=== PATIENT | female | born 1930 | race Caucasian/White ===

== ENCOUNTER 2019-01-25 19:25 | Inpatient (IN) ==
[2019-01-25] MEDS ORDERED: ALBUTEROL/IPRATROPIUM 3 ML NEB RESP TX STA (20:02)
[2019-01-25] MEDS ORDERED: SODIUM CHLORIDE 0.9% 1,000 ML IV STA (20:02)
[2019-01-25] MEDS ORDERED: methylPREDNISolone SOD SUC 125 MG/2 ML VIAL IV STA (20:02)
[2019-01-25 20:12] LABS: Basophils % 0.3 % (0.0-0.8); Hematocrit 39.2 VOL% (35.7-47.0); Hemoglobin 12.5 GM/DL (12.0-16.0); Immature Granulocytes % 0.7 %; Immature Granulocytes Absolute 0.08 #; Lymphocytes % 8.5 % (21.3-54.2); Mean Corpuscular HGB Conc 31.9 GM/DL (32-36); Mean Corpuscular Hemoglobin 33 PG (27-34); Mean Corpuscular Volume 102.6 FL (87-102); Mean Platelet Volume 10.5 FL (9.6-12.0); Monocytes # 0.7 10*3/uL (0.11-0.8); Monocytes % 5.8 % (1.7-12.7); Neutrophils % 84.7 % (38.7-73.9); Platelet Count 252 T/CUMM (130-400); Red Blood Count 3.82 MC/CUMM (3.8-5.5); Red Cell Distribution Width 13.5 % (9.3-17.3); White Blood Count 11.8 T/CUMM (4-12)
[2019-01-25 20:31] LABS: Alanine Aminotransferase 18 U/L (13-56); Albumin 3.6 G/DL (3.4-5.0); Alkaline Phosphatase 115 U/L (45-117); Aspartate Amino Transferase 17 U/L (0-37); Bilirubin,Total < 0.39 MG/DL (0.2-1.0); Blood Urea Nitrogen 36 MG/DL (7-18); Calcium 9.1 MG/DL (8.5-10.1); Glucose 139 MG/DL (74-106); Osmolality,Calculated 284.7 MOS/KG (273-304); Potassium 4.9 MMOL/L (3.5-5.1); Sodium 138 MMOL/L (136-145); Total Protein 6.9 G/DL (6.4-8.3)
[2019-01-25 21:36] LABS: Apearance,Urine CLEAR (Clear); Bilirubin,Urine Negative (Negative); Blood, Urine Negative (Negative); Glucose,Urine (UA) Negative (Negative); Hyaline Casts,Urine 4 /LPF (0-3); Ketones,Urine Negative (Negative); Mucus,Urine Occasional /LPF (Occasional); Nitrite,Urine Negative (Negative); Protein,Urine 30 MG/DL; RBC,Urine 1 /HPF (0-4); Squamous Epithelial Cell,Urine Occasional /HPF (0-10); Urine Color Yellow (Yellow); Urine Specific Gravity 1.021 (1.001-1.035); Urine Urobilinogen < 2.0 EU/DL (0.2-1.0); WBC,Urine 2 /HPF (0-6)
[2019-01-25 21:42] LABS: ABG Base Excess -4.9 MMOL/L (-2.5-2.5); ABG HCO3 20.3 MMOL/L (20-26); ABG Oxygen Saturation 97.2 % (95-100); ABG PH 7.412 (7.35-7.45); ABG PO2 91.9 MM HG (80-95); ABG TCO2 16.3 MMOL/L (23-27); Allen Test Positive
[2019-01-25] MEDS ORDERED: PIPERACILLIN/TAZOBACTAM 3,375 MG in SODIUM CHLORIDE 0.9% 100 ML IV ONE (23:01)
[2019-01-25] MEDS ORDERED: ZALEPLON 5 MG CAPSULE PO PRN (23:18)
[2019-01-25] MEDS ORDERED: ONDANSETRON 4 MG/2 ML VIAL IV PRN (23:18)
[2019-01-25] MEDS ORDERED: NICOTINE 21 MG/24 HR PATCH TRANSDERM PRN (23:18)
[2019-01-25] MEDS ORDERED: diphenhydrAMINE CAP 25 MG CAPSULE PO PRN (23:18)
[2019-01-25] MEDS ORDERED: BISACODYL 5 MG TABLET PO PRN (23:18)
[2019-01-25] MEDS ORDERED: MORPHINE 4 MG/1 ML VIAL IV PRN (23:18)
[2019-01-26] MEDS: ALBUTEROL/IPRATROPIUM 3 ML NEB RESP TX SCH ×4 (00:51→19:06)
[2019-01-26] MEDS: methylPREDNISolone SOD SUC 40 MG/1 ML VIAL IV SCH ×3 (01:17→17:41)
[2019-01-26] MEDS: CLORAZEPATE 3.75 MG TABLET PO SCH ×3 (08:51→20:25)
[2019-01-26] MEDS: guaiFENesin/DM ER 600-30 MG TABLET PO PRN ×2 (08:51→19:35)
[2019-01-26] MEDS: PANTOPRAZOLE 40 MG TABLET PO SCH (08:51)
[2019-01-26] MEDS: AZITHROMYCIN 250 MG TABLET PO SCH (08:51)
[2019-01-26] MEDS: HYDROcodone/CHLORPHENIRAMINE ER 5 ML UDCUP PO PRN (10:30)
[2019-01-26] MEDS ORDERED: FUROSEMIDE 40 MG/4 ML VIAL IV ONE (12:10)
[2019-01-26] MEDS ORDERED: FUROSEMIDE 40 MG/4 ML VIAL ONE (12:12)
[2019-01-26 12:30] LABS: ABG Base Excess -6.8 MMOL/L (-2.5-2.5); ABG HCO3 18.9 MMOL/L (20-26); ABG Oxygen Saturation 95.8 % (95-100); ABG PCO2 26.9 MM HG (35-48); ABG PH 7.397 (7.35-7.45); ABG PO2 81.5 MM HG (80-95); ABG TCO2 14.3 MMOL/L (23-27)
[2019-01-26] MEDS ORDERED: SODIUM BICARB IV SCH (13:45)
[2019-01-26] MEDS ORDERED: SODIUM CHLORIDE 0.9% IV SCH (13:45)
[2019-01-26] MEDS: BENZONATATE 100 MG CAPSULE PO PRN (19:34)
[2019-01-26] MEDS: ACETAMINOPHEN 325 MG TABLET PO PRN (19:34)
[2019-01-26] MEDS: MONTELUKAST 10 MG TABLET PO SCH (20:25)
[2019-01-27] MEDS: methylPREDNISolone SOD SUC 40 MG/1 ML VIAL IV SCH ×3 (00:32→16:49)
[2019-01-27] MEDS: ALBUTEROL/IPRATROPIUM 3 ML NEB RESP TX SCH ×4 (02:17→19:34)
[2019-01-27 04:56] LABS: Basophils % 0.1 % (0.0-0.8); Hematocrit 37.8 VOL% (35.7-47.0); Hemoglobin 12.1 GM/DL (12.0-16.0); Immature Granulocytes Absolute 0.13 #; Lymphocytes # 1.2 10*3/uL (1.4-4.0); Lymphocytes % 8.8 % (21.3-54.2); Mean Corpuscular Hemoglobin 33 PG (27-34); Mean Platelet Volume 10.9 FL (9.6-12.0); Monocytes # 0.7 10*3/uL (0.11-0.8); Monocytes % 4.9 % (1.7-12.7); Neutrophils # 11.6 10*3/uL (1.4-7.4); Neutrophils % 85.2 % (38.7-73.9); Platelet Count 231 T/CUMM (130-400); Red Blood Count 3.67 MC/CUMM (3.8-5.5); Red Cell Distribution Width 13.8 % (9.3-17.3); White Blood Count 13.6 T/CUMM (4-12)
[2019-01-27 05:06] LABS: Calcium 8.7 MG/DL (8.5-10.1); Potassium 4.6 MMOL/L (3.5-5.1)
[2019-01-27] MEDS: MONTELUKAST 10 MG TABLET PO SCH ×2 (08:56→23:00)
[2019-01-27] MEDS: AZITHROMYCIN 250 MG TABLET PO SCH (08:57)
[2019-01-27] MEDS: PANTOPRAZOLE 40 MG TABLET PO SCH (08:57)
[2019-01-27] MEDS: CLORAZEPATE 3.75 MG TABLET PO SCH ×3 (08:57→23:00)
[2019-01-27] MEDS: HYDROcodone/CHLORPHENIRAMINE ER 5 ML UDCUP PO PRN ×2 (08:59→23:41)
[2019-01-27] MEDS: ALBUTEROL 2.5 MG/3 ML NEB RESP TX PRN ×2 (21:20→23:40)
[2019-01-27] MEDS: NYSTATIN POWDER 15 GM BOTTLE TOP SCH (23:00)
[2019-01-27] MEDS: BENZONATATE 100 MG CAPSULE PO PRN (23:00)
[2019-01-27] MEDS: guaiFENesin/DM ER 600-30 MG TABLET PO PRN (23:00)
[2019-01-28] MEDS: ALBUTEROL/IPRATROPIUM 3 ML NEB RESP TX SCH ×4 (02:15→19:33)
[2019-01-28] MEDS: methylPREDNISolone SOD SUC 40 MG/1 ML VIAL IV SCH ×2 (02:33→09:06)
[2019-01-28] MEDS: BENZONATATE 100 MG CAPSULE PO PRN ×2 (09:05→20:30)
[2019-01-28] MEDS: MONTELUKAST 10 MG TABLET PO SCH ×2 (09:05→20:27)
[2019-01-28] MEDS: guaiFENesin/DM ER 600-30 MG TABLET PO PRN ×2 (09:05→20:27)
[2019-01-28] MEDS: CLORAZEPATE 3.75 MG TABLET PO SCH ×3 (09:06→20:27)
[2019-01-28] MEDS: PANTOPRAZOLE 40 MG TABLET PO SCH (09:06)
[2019-01-28] MEDS: NYSTATIN POWDER 15 GM BOTTLE TOP SCH ×2 (09:06→14:05)
[2019-01-28] MEDS: methylPREDNISolone SOD SUC 125 MG/2 ML VIAL IV SCH ×2 (12:34→17:35)
[2019-01-28] MEDS: AZITHROMYCIN INJ 250 MG in SODIUM CHLORIDE 0.9% 250 ML IV SCH (14:05)
[2019-01-28] MEDS: BUDESONIDE 0.5 MG/2 ML NEB RESP TX SCH (19:33)
[2019-01-28] MEDS: ARFORMOTEROL 15 MCG/2 ML NEB RESP TX SCH (19:33)
[2019-01-28] MEDS: guaiFENesin/CODEINE 5 ML LIQUID PO PRN (21:31)
[2019-01-28] MEDS: ALBUTEROL 2.5 MG/3 ML NEB RESP TX PRN (22:59)
[2019-01-29] MEDS: methylPREDNISolone SOD SUC 125 MG/2 ML VIAL IV SCH ×5 (00:56→23:44)
[2019-01-29] MEDS: NYSTATIN POWDER 15 GM BOTTLE TOP SCH ×4 (00:58→20:35)
[2019-01-29] MEDS: ALBUTEROL/IPRATROPIUM 3 ML NEB RESP TX SCH ×5 (01:28→19:00)
[2019-01-29] MEDS: BENZONATATE 100 MG CAPSULE PO PRN ×3 (05:21→20:39)
[2019-01-29 05:42] LABS: Basophils # 0.1 10*3/uL (0.0-0.2); Basophils % 0.4 % (0.0-0.8); Hematocrit 38.1 VOL% (35.7-47.0); Hemoglobin 12.3 GM/DL (12.0-16.0); Immature Granulocytes % 5.3 %; Immature Granulocytes Absolute 0.74 #; Lymphocytes # 1.2 10*3/uL (1.4-4.0); Lymphocytes % 8.2 % (21.3-54.2); Mean Corpuscular HGB Conc 32.3 GM/DL (32-36); Mean Corpuscular Hemoglobin 33 PG (27-34); Mean Corpuscular Volume 102.1 FL (87-102); Monocytes # 0.9 10*3/uL (0.11-0.8); Monocytes % 6.2 % (1.7-12.7); NRBC # 0.02 10*3/uL; Neutrophils # 11.2 10*3/uL (1.4-7.4); Neutrophils % 79.9 % (38.7-73.9); Platelet Count 240 T/CUMM (130-400); Red Blood Count 3.73 MC/CUMM (3.8-5.5); Red Cell Distribution Width 13.9 % (9.3-17.3)
[2019-01-29 06:09] LABS: Albumin 3.3 G/DL (3.4-5.0); Bilirubin,Total 0.8 MG/DL (0.2-1.0); Calcium 8.4 MG/DL (8.5-10.1); Osmolality,Calculated 294.8 MOS/KG (273-304); Potassium 4.2 MMOL/L (3.5-5.1); Total Protein 6.6 G/DL (6.4-8.3)
[2019-01-29 06:34] LABS: Eosinophils 1 % (0-10); Lymphocytes 10 % (20-55); Metamyelocytes 1 %; Platelet Estimate Adequate; Segmented Neutrophils 86 % (50-85); Total Cells Counted 100
[2019-01-29] MEDS: ARFORMOTEROL 15 MCG/2 ML NEB RESP TX SCH ×2 (07:12→19:00)
[2019-01-29] MEDS: BUDESONIDE 0.5 MG/2 ML NEB RESP TX SCH ×2 (07:12→19:00)
[2019-01-29] MEDS: guaiFENesin/CODEINE 5 ML LIQUID PO PRN ×3 (07:20→23:44)
[2019-01-29] MEDS: CLORAZEPATE 3.75 MG TABLET PO SCH ×3 (08:10→20:35)
[2019-01-29] MEDS: PANTOPRAZOLE 40 MG TABLET PO SCH ×2 (08:10→20:35)
[2019-01-29] MEDS: guaiFENesin/DM ER 600-30 MG TABLET PO PRN (08:10)
[2019-01-29] MEDS: MONTELUKAST 10 MG TABLET PO SCH ×2 (08:10→20:35)
[2019-01-29] MEDS: ALBUTEROL 2.5 MG/3 ML NEB RESP TX PRN ×3 (09:08→15:40)
[2019-01-29] MEDS ORDERED: DILTIAZEM 30 MG TABLET PO SCH (10:00)
[2019-01-29] MEDS: DILTIAZEM 30 MG TABLET PO SCH ×2 (14:01→20:35)
[2019-01-29] MEDS: METAXALONE 800 MG TABLET PO SCH ×2 (14:01→20:36)
[2019-01-29] MEDS: AZITHROMYCIN INJ 250 MG in SODIUM CHLORIDE 0.9% 250 ML IV SCH (14:12)
[2019-01-29] MEDS: DORNASE ALFA 2.5 MG/2.5 ML VIAL RESP TX SCH (19:45)
[2019-01-29] MEDS: PRAMIPEXOLE 0.25 MG TABLET PO SCH (20:35)
[2019-01-29] MEDS: DONEPEZIL 10 MG TABLET PO SCH (20:35)
[2019-01-29] MEDS: ASPIRIN EC 81 MG TABLET PO SCH (20:35)
[2019-01-29] MEDS: OMEGA 3 ACID ETHYL ESTERS 1 GM CAPSULE PO SCH (20:35)
[2019-01-29] MEDS: MAGNESIUM CHLORIDE 64 MG TABLET PO SCH (20:36)
[2019-01-29] MEDS: MEMANTINE 10 MG TABLET PO SCH (20:36)
[2019-01-29] MEDS: TEMAZEPAM 15 MG CAPSULE PO SCH (20:36)
[2019-01-29] MEDS: GLUCOSAMINE 500 MG TABLET PO SCH (20:36)
[2019-01-29] MEDS ORDERED: PIRFENIDONE PO SCH (21:00)
[2019-01-29] MEDS: PARoxetine 20 MG TABLET PO SCH (22:08)
[2019-01-30] MEDS: ALBUTEROL/IPRATROPIUM 3 ML NEB RESP TX SCH ×4 (00:27→20:07)
[2019-01-30 04:38] LABS: Basophils # 0.1 10*3/uL (0.0-0.2); Basophils % 0.3 % (0.0-0.8); Hemoglobin 11.5 GM/DL (12.0-16.0); Immature Granulocytes % 5.6 %; Immature Granulocytes Absolute 0.82 #; Lymphocytes # 1.3 10*3/uL (1.4-4.0); Lymphocytes % 8.8 % (21.3-54.2); Mean Corpuscular HGB Conc 31.9 GM/DL (32-36); Mean Corpuscular Hemoglobin 33 PG (27-34); Mean Corpuscular Volume 102.9 FL (87-102); Mean Platelet Volume 10.8 FL (9.6-12.0); Monocytes # 0.9 10*3/uL (0.11-0.8); Monocytes % 6.3 % (1.7-12.7); NRBC # 0.04 10*3/uL; Neutrophils # 11.6 10*3/uL (1.4-7.4); Platelet Count 202 T/CUMM (130-400); Red Cell Distribution Width 13.7 % (9.3-17.3); White Blood Count 14.7 T/CUMM (4-12)
[2019-01-30 05:01] LABS: Calcium 8.1 MG/DL (8.5-10.1); Osmolality,Calculated 293.8 MOS/KG (273-304); Potassium 4.1 MMOL/L (3.5-5.1)
[2019-01-30 05:04] LABS: Hypochromasia 1+; Lymphocytes 10 % (20-55); Platelet Estimate Adequate; Segmented Neutrophils 85 % (50-85); Total Cells Counted 100
[2019-01-30] MEDS: methylPREDNISolone SOD SUC 125 MG/2 ML VIAL IV SCH ×3 (06:12→20:51)
[2019-01-30] MEDS: LEVOTHYROXINE 88 MCG TABLET PO SCH (06:12)
[2019-01-30] MEDS: BENZONATATE 100 MG CAPSULE PO PRN (06:12)
[2019-01-30] MEDS: BUDESONIDE 0.5 MG/2 ML NEB RESP TX SCH ×2 (07:40→20:08)
[2019-01-30] MEDS: ARFORMOTEROL 15 MCG/2 ML NEB RESP TX SCH ×2 (07:40→20:07)
[2019-01-30] MEDS: DORNASE ALFA 2.5 MG/2.5 ML VIAL RESP TX SCH ×2 (07:51→20:31)
[2019-01-30] MEDS: ASCORBIC ACID 500 MG TABLET PO SCH (10:00)
[2019-01-30] MEDS: DILTIAZEM 30 MG TABLET PO SCH ×3 (10:00→20:52)
[2019-01-30] MEDS: amLODIPine 2.5 MG TABLET PO SCH (10:00)
[2019-01-30] MEDS: CLORAZEPATE 3.75 MG TABLET PO SCH ×3 (10:00→20:52)
[2019-01-30] MEDS: PANTOPRAZOLE 40 MG TABLET PO SCH ×2 (10:00→20:52)
[2019-01-30] MEDS: MEMANTINE 10 MG TABLET PO SCH ×2 (10:00→20:51)
[2019-01-30] MEDS: NYSTATIN POWDER 15 GM BOTTLE TOP SCH ×3 (10:05→20:53)
[2019-01-30] MEDS: METAXALONE 800 MG TABLET PO SCH ×2 (10:07→20:52)
[2019-01-30] MEDS: MONTELUKAST 10 MG TABLET PO SCH ×2 (10:08→20:51)
[2019-01-30] MEDS: AZITHROMYCIN INJ 250 MG in SODIUM CHLORIDE 0.9% 250 ML IV SCH (10:08)
[2019-01-30] MEDS: guaiFENesin/CODEINE 5 ML LIQUID PO PRN (10:14)
[2019-01-30] MEDS: ASPIRIN EC 81 MG TABLET PO SCH (20:51)
[2019-01-30] MEDS: OMEGA 3 ACID ETHYL ESTERS 1 GM CAPSULE PO SCH (20:51)
[2019-01-30] MEDS: MAGNESIUM CHLORIDE 64 MG TABLET PO SCH (20:51)
[2019-01-30] MEDS: GLUCOSAMINE 500 MG TABLET PO SCH (20:51)
[2019-01-30] MEDS: PARoxetine 20 MG TABLET PO SCH (20:51)
[2019-01-30] MEDS: PRAMIPEXOLE 0.25 MG TABLET PO SCH (20:51)
[2019-01-30] MEDS: DONEPEZIL 10 MG TABLET PO SCH (20:52)
[2019-01-30] MEDS: TEMAZEPAM 15 MG CAPSULE PO SCH (20:52)
[2019-01-31] MEDS: ALBUTEROL/IPRATROPIUM 3 ML NEB RESP TX SCH ×4 (00:35→19:23)
[2019-01-31] MEDS: methylPREDNISolone SOD SUC 125 MG/2 ML VIAL IV SCH ×4 (03:13→21:27)
[2019-01-31 05:31] LABS: Basophils # 0.1 10*3/uL (0.0-0.2); Basophils % 0.3 % (0.0-0.8); Hematocrit 36.7 VOL% (35.7-47.0); Hemoglobin 11.7 GM/DL (12.0-16.0); Immature Granulocytes % 5.4 %; Lymphocytes # 1.1 10*3/uL (1.4-4.0); Lymphocytes % 7.5 % (21.3-54.2); Mean Corpuscular HGB Conc 31.9 GM/DL (32-36); Mean Corpuscular Hemoglobin 33 PG (27-34); Mean Corpuscular Volume 102.5 FL (87-102); Mean Platelet Volume 10.5 FL (9.6-12.0); Monocytes # 0.8 10*3/uL (0.11-0.8); Monocytes % 5.2 % (1.7-12.7); NRBC # 0.03 10*3/uL; Neutrophils % 81.6 % (38.7-73.9); Platelet Count 217 T/CUMM (130-400); Red Blood Count 3.58 MC/CUMM (3.8-5.5); Red Cell Distribution Width 13.5 % (9.3-17.3); White Blood Count 14.7 T/CUMM (4-12)
[2019-01-31 05:56] LABS: Band Neutrophils 1 % (0-10); Hypochromasia 1+; Lymphocytes 9 % (20-55); Nucleated Red Blood Cells 1 (0-5); Ovalocytes Slight; Platelet Estimate Adequate; Segmented Neutrophils 87 % (50-85); Total Cells Counted 100
[2019-01-31 05:58] LABS: Calcium 7.9 MG/DL (8.5-10.1); Osmolality,Calculated 292.8 MOS/KG (273-304); Potassium 4.1 MMOL/L (3.5-5.1)
[2019-01-31] MEDS ORDERED: PROMETHAZINE 25 MG/1 ML VIAL IM ONE (07:00)
[2019-01-31] MEDS ORDERED: MEPERIDINE 50 MG/1 ML VIAL IM ONE (07:00)
[2019-01-31] MEDS ORDERED: GLYCOPYRROLATE 0.4 MG/2 ML VIAL IM ONE (07:00)
[2019-01-31] MEDS ORDERED: MIDAZOLAM 2 MG/2 ML VIAL ONE (07:01)
[2019-01-31] MEDS: ARFORMOTEROL 15 MCG/2 ML NEB RESP TX SCH ×2 (07:26→19:23)
[2019-01-31] MEDS: BUDESONIDE 0.5 MG/2 ML NEB RESP TX SCH ×2 (07:27→19:23)
[2019-01-31] MEDS: DORNASE ALFA 2.5 MG/2.5 ML VIAL RESP TX SCH ×2 (07:28→19:38)
[2019-01-31] MEDS ORDERED: LIDOCAINE 2% VISCOUS 100 ML BOTTLE SWISH/SPIT ONE (07:30)
[2019-01-31] MEDS ORDERED: LIDOCAINE 1% 20 ML VIAL MISC INJ ONE (07:30)
[2019-01-31] MEDS ORDERED: MIDAZOLAM 2 MG/2 ML VIAL IV ONE (07:30)
[2019-01-31] MEDS ORDERED: LIDOCAINE 2% 20 ML VIAL RESP TX ONE (07:30)
[2019-01-31] MEDS ORDERED: ENOXAPARIN 30 MG/0.3 ML SYRINGE SUBCUT ONE (07:56)
[2019-01-31] MEDS: DILTIAZEM 30 MG TABLET PO SCH ×3 (10:06→21:23)
[2019-01-31] MEDS: MEMANTINE 10 MG TABLET PO SCH ×2 (10:07→21:25)
[2019-01-31] MEDS: PANTOPRAZOLE 40 MG TABLET PO SCH ×3 (10:07→21:22)
[2019-01-31] MEDS: LEVOTHYROXINE 88 MCG TABLET PO SCH (10:07)
[2019-01-31] MEDS: ASCORBIC ACID 500 MG TABLET PO SCH ×2 (10:07→10:23)
[2019-01-31] MEDS: ENOXAPARIN 40 MG/0.4 ML SYRINGE SUBCUT SCH (10:07)
[2019-01-31] MEDS: amLODIPine 2.5 MG TABLET PO SCH (10:07)
[2019-01-31] MEDS: AZITHROMYCIN INJ 250 MG in SODIUM CHLORIDE 0.9% 250 ML IV SCH (10:13)
[2019-01-31] MEDS: NYSTATIN POWDER 15 GM BOTTLE TOP SCH ×3 (10:21→21:25)
[2019-01-31] MEDS: METAXALONE 800 MG TABLET PO SCH ×2 (10:21→21:27)
[2019-01-31] MEDS: MONTELUKAST 10 MG TABLET PO SCH ×2 (10:21→21:23)
[2019-01-31] MEDS: CLORAZEPATE 3.75 MG TABLET PO SCH ×3 (10:21→21:26)
[2019-01-31 17:10] LABS: Free T4 (Free Thyroxine) 0.9 NG/DL (0.76-1.46)
[2019-01-31] MEDS: OMEGA 3 ACID ETHYL ESTERS 1 GM CAPSULE PO SCH (21:22)
[2019-01-31] MEDS: PARoxetine 20 MG TABLET PO SCH (21:22)
[2019-01-31] MEDS: PRAMIPEXOLE 0.25 MG TABLET PO SCH (21:23)
[2019-01-31] MEDS: ASPIRIN EC 81 MG TABLET PO SCH (21:23)
[2019-01-31] MEDS: GLUCOSAMINE 500 MG TABLET PO SCH (21:23)
[2019-01-31] MEDS: TEMAZEPAM 15 MG CAPSULE PO SCH (21:24)
[2019-01-31] MEDS: MAGNESIUM CHLORIDE 64 MG TABLET PO SCH (21:24)
[2019-01-31] MEDS: DONEPEZIL 10 MG TABLET PO SCH (21:24)
[2019-02-01] MEDS: ALBUTEROL/IPRATROPIUM 3 ML NEB RESP TX SCH ×4 (00:09→19:21)
[2019-02-01] MEDS: methylPREDNISolone SOD SUC 125 MG/2 ML VIAL IV SCH ×2 (04:19→09:44)
[2019-02-01] MEDS: BENZONATATE 100 MG CAPSULE PO PRN ×2 (04:19→18:01)
[2019-02-01 05:32] LABS: Basophils # 0.1 10*3/uL (0.0-0.2); Basophils % 0.3 % (0.0-0.8); Eosinophils % 0.1 % (0.00-10.9); Hematocrit 38.2 VOL% (35.7-47.0); Immature Granulocytes % 6.1 %; Immature Granulocytes Absolute 0.96 #; Lymphocytes % 6.1 % (21.3-54.2); Mean Corpuscular HGB Conc 31.4 GM/DL (32-36); Mean Corpuscular Hemoglobin 32 PG (27-34); Mean Corpuscular Volume 103.2 FL (87-102); Mean Platelet Volume 10.5 FL (9.6-12.0); Monocytes # 0.8 10*3/uL (0.11-0.8); Monocytes % 4.9 % (1.7-12.7); NRBC # 0.04 10*3/uL; Neutrophils # 13.1 10*3/uL (1.4-7.4); Neutrophils % 82.5 % (38.7-73.9); Platelet Count 215 T/CUMM (130-400); Red Cell Distribution Width 13.7 % (9.3-17.3); White Blood Count 15.8 T/CUMM (4-12)
[2019-02-01 05:52] LABS: Calcium 8.1 MG/DL (8.5-10.1); Potassium 4.1 MMOL/L (3.5-5.1)
[2019-02-01 06:31] LABS: Hypochromasia 1+; Lymphocytes 13 % (20-55); Platelet Estimate Normal; Segmented Neutrophils 85 % (50-85); Total Cells Counted 100
[2019-02-01 06:32] LABS: Polychromasia Few
[2019-02-01] MEDS: LEVOTHYROXINE 88 MCG TABLET PO SCH (06:37)
[2019-02-01] MEDS: BUDESONIDE 0.5 MG/2 ML NEB RESP TX SCH ×2 (07:08→19:21)
[2019-02-01] MEDS: ARFORMOTEROL 15 MCG/2 ML NEB RESP TX SCH ×2 (07:08→19:21)
[2019-02-01] MEDS: DORNASE ALFA 2.5 MG/2.5 ML VIAL RESP TX SCH ×2 (07:26→19:21)
[2019-02-01] MEDS: guaiFENesin/CODEINE 5 ML LIQUID PO PRN ×2 (07:26→20:45)
[2019-02-01] MEDS: ENOXAPARIN 40 MG/0.4 ML SYRINGE SUBCUT SCH (09:29)
[2019-02-01] MEDS: MEMANTINE 10 MG TABLET PO SCH ×2 (09:30→20:47)
[2019-02-01] MEDS: PANTOPRAZOLE 40 MG TABLET PO SCH ×2 (09:30→20:46)
[2019-02-01] MEDS: amLODIPine 2.5 MG TABLET PO SCH (09:30)
[2019-02-01] MEDS: ASCORBIC ACID 500 MG TABLET PO SCH (09:30)
[2019-02-01] MEDS: MONTELUKAST 10 MG TABLET PO SCH ×2 (09:30→20:46)
[2019-02-01] MEDS: CLORAZEPATE 3.75 MG TABLET PO SCH ×4 (09:30→20:50)
[2019-02-01] MEDS: DILTIAZEM 30 MG TABLET PO SCH ×3 (09:31→20:45)
[2019-02-01] MEDS: NYSTATIN POWDER 15 GM BOTTLE TOP SCH ×3 (09:31→21:44)
[2019-02-01] MEDS: AZITHROMYCIN INJ 250 MG in SODIUM CHLORIDE 0.9% 250 ML IV SCH (09:31)
[2019-02-01] MEDS: METAXALONE 800 MG TABLET PO SCH ×2 (09:35→20:47)
[2019-02-01] MEDS: predniSONE 20 MG TABLET PO SCH (09:36)
[2019-02-01] MEDS: PRAMIPEXOLE 0.25 MG TABLET PO SCH (20:45)
[2019-02-01] MEDS: OMEGA 3 ACID ETHYL ESTERS 1 GM CAPSULE PO SCH (20:45)
[2019-02-01] MEDS: GLUCOSAMINE 500 MG TABLET PO SCH (20:45)
[2019-02-01] MEDS: ASPIRIN EC 81 MG TABLET PO SCH (20:45)
[2019-02-01] MEDS: MAGNESIUM CHLORIDE 64 MG TABLET PO SCH (20:45)
[2019-02-01] MEDS: TEMAZEPAM 15 MG CAPSULE PO SCH (20:46)
[2019-02-01] MEDS: PARoxetine 20 MG TABLET PO SCH (20:46)
[2019-02-01] MEDS: DONEPEZIL 10 MG TABLET PO SCH (20:47)
[2019-02-02] MEDS: ALBUTEROL/IPRATROPIUM 3 ML NEB RESP TX SCH ×3 (00:35→12:08)
[2019-02-02 05:12] LABS: Basophils % 0.2 % (0.0-0.8); Hematocrit 34.5 VOL% (35.7-47.0); Hemoglobin 11.1 GM/DL (12.0-16.0); Immature Granulocytes % 6.2 %; Lymphocytes % 6.3 % (21.3-54.2); Mean Corpuscular HGB Conc 32.2 GM/DL (32-36); Mean Corpuscular Hemoglobin 33 PG (27-34); Mean Platelet Volume 10.5 FL (9.6-12.0); Monocytes # 1.5 10*3/uL (0.11-0.8); Monocytes % 9.3 % (1.7-12.7); NRBC # 0.02 10*3/uL; Neutrophils # 12.6 10*3/uL (1.4-7.4); Platelet Count 182 T/CUMM (130-400); Red Blood Count 3.35 MC/CUMM (3.8-5.5); Red Cell Distribution Width 13.8 % (9.3-17.3); White Blood Count 16.2 T/CUMM (4-12)
[2019-02-02 05:34] LABS: Hypochromasia 1+; Lymphocytes 8 % (20-55); Segmented Neutrophils 87 % (50-85); Total Cells Counted 100
[2019-02-02 05:35] LABS: Macrocytosis Slight
[2019-02-02 05:36] LABS: Calcium 7.8 MG/DL (8.5-10.1); Osmolality,Calculated 292.8 MOS/KG (273-304); Platelet Estimate Adequate; Potassium 3.9 MMOL/L (3.5-5.1)
[2019-02-02] MEDS ORDERED: LEVOTHYROXINE 100 MCG TABLET PO SCH (06:30)
[2019-02-02] MEDS: DORNASE ALFA 2.5 MG/2.5 ML VIAL RESP TX SCH (07:04)
[2019-02-02] MEDS: ARFORMOTEROL 15 MCG/2 ML NEB RESP TX SCH (07:04)
[2019-02-02] MEDS: BUDESONIDE 0.5 MG/2 ML NEB RESP TX SCH (07:04)
[2019-02-02] MEDS: NYSTATIN POWDER 15 GM BOTTLE TOP SCH (08:55)
[2019-02-02] MEDS: DILTIAZEM 30 MG TABLET PO SCH (08:55)
[2019-02-02] MEDS: MEMANTINE 10 MG TABLET PO SCH (08:55)
[2019-02-02] MEDS: predniSONE 20 MG TABLET PO SCH (08:55)
[2019-02-02] MEDS: PANTOPRAZOLE 40 MG TABLET PO SCH (08:55)
[2019-02-02] MEDS: ASCORBIC ACID 500 MG TABLET PO SCH (08:55)
[2019-02-02] MEDS: MONTELUKAST 10 MG TABLET PO SCH (08:55)
[2019-02-02] MEDS: amLODIPine 2.5 MG TABLET PO SCH (08:55)
[2019-02-02] MEDS: METAXALONE 800 MG TABLET PO SCH (08:55)
[2019-02-02] MEDS: CLORAZEPATE 3.75 MG TABLET PO SCH (08:56)
[2019-02-02] MEDS: ENOXAPARIN 40 MG/0.4 ML SYRINGE SUBCUT SCH (08:56)
[2019-02-02] MEDS: AZITHROMYCIN INJ 250 MG in SODIUM CHLORIDE 0.9% 250 ML IV SCH (08:56)
[2019-02-02] MEDS: ACETAMINOPHEN 325 MG TABLET PO PRN (09:44)
[2019-02-02 12:01] VITALS: BP 134/70
== END 2019-02-02 14:20 | disposition home health service (06) | DRG 191 ==
LOC: EDUNIT# → N.ED 19:25 → N.EDINP 23:18 → SUATTDRO 23:18 → N.2E 01-26 00:01
PROVIDERS: ADMIT Internal Medicine; ATTEND Internal Medicine

== ENCOUNTER 2019-03-11 23:37 | Inpatient (IN) ==
[2019-03-12] MEDS ORDERED: FUROSEMIDE 40 MG/4 ML VIAL IV STA (00:25)
[2019-03-12 01:14] LABS: Basophils # 0.1 10*3/uL (0.0-0.2); Basophils % 0.6 % (0.0-0.8); Eosinophils # 0.1 10*3/uL (0.0-0.87); Eosinophils % 0.7 % (0.00-10.9); Hematocrit 42.8 VOL% (35.7-47.0); Hemoglobin 13.8 GM/DL (12.0-16.0); Immature Granulocytes % 0.6 %; Immature Granulocytes Absolute 0.08 #; Lymphocytes # 1.2 10*3/uL (1.4-4.0); Lymphocytes % 9.8 % (21.3-54.2); Mean Corpuscular HGB Conc 32.2 GM/DL (32-36); Mean Corpuscular Volume 102.4 FL (87-102); Mean Platelet Volume 10.5 FL (9.6-12.0); Neutrophils % 77.3 % (38.7-73.9); Platelet Count 156 T/CUMM (130-400); Red Blood Count 4.18 MC/CUMM (3.8-5.5); Red Cell Distribution Width 14.4 % (9.3-17.3); White Blood Count 12.7 T/CUMM (4-12)
[2019-03-12 01:31] LABS: Bilirubin,Total 0.5 MG/DL (0.2-1.0); Calcium 8.5 MG/DL (8.5-10.1); Osmolality,Calculated 290.7 MOS/KG (273-304); Total Protein 6.1 G/DL (6.4-8.3)
[2019-03-12 03:53] LABS: ABG Base Excess 0.7 MMOL/L (-2.5-2.5); ABG PCO2 30.7 MM HG (35-48); ABG PH 7.483 (7.35-7.45); ABG TCO2 19.6 MMOL/L (23-27); Allen Test Positive
[2019-03-12] MEDS ORDERED: diphenhydrAMINE CAP 25 MG CAPSULE PO PRN (04:00)
[2019-03-12] MEDS ORDERED: NICOTINE 21 MG/24 HR PATCH TRANSDERM PRN (04:00)
[2019-03-12] MEDS ORDERED: ONDANSETRON 4 MG/2 ML VIAL IV PRN (04:00)
[2019-03-12] MEDS ORDERED: BISACODYL 5 MG TABLET PO PRN (04:00)
[2019-03-12] MEDS: methylPREDNISolone SOD SUC 40 MG/1 ML VIAL IV SCH ×2 (04:56→17:04)
[2019-03-12] MEDS: cefTRIAXone 1,000 MG in SYRINGE 1 EACH IV SCH (04:57)
[2019-03-12] MEDS: guaiFENesin/DM ER 600-30 MG TABLET PO SCH ×2 (09:05→20:19)
[2019-03-12] MEDS: DOXYCYCLINE HYCLATE 100 MG CAPSULE PO SCH ×2 (09:05→20:19)
[2019-03-12] MEDS: PANTOPRAZOLE 40 MG TABLET PO SCH (09:05)
[2019-03-12] MEDS: CLORAZEPATE 3.75 MG TABLET PO SCH ×2 (11:09→20:19)
[2019-03-12] MEDS: NYSTATIN POWDER 15 GM BOTTLE TOP SCH ×2 (11:17→20:23)
[2019-03-12] MEDS: ALBUTEROL/IPRATROPIUM 3 ML NEB RESP TX SCH ×2 (12:15→19:11)
[2019-03-13] MEDS: ALBUTEROL/IPRATROPIUM 3 ML NEB RESP TX SCH ×5 (00:37→19:07)
[2019-03-13] MEDS: methylPREDNISolone SOD SUC 40 MG/1 ML VIAL IV SCH ×2 (04:03→16:14)
[2019-03-13] MEDS: cefTRIAXone 1,000 MG in SYRINGE 1 EACH IV SCH (04:03)
[2019-03-13] MEDS: CLORAZEPATE 3.75 MG TABLET PO SCH ×2 (08:53→21:09)
[2019-03-13] MEDS: DOXYCYCLINE HYCLATE 100 MG CAPSULE PO SCH ×2 (08:53→21:09)
[2019-03-13] MEDS: PANTOPRAZOLE 40 MG TABLET PO SCH (08:53)
[2019-03-13] MEDS: guaiFENesin/DM ER 600-30 MG TABLET PO SCH ×2 (08:53→21:10)
[2019-03-13] MEDS: NYSTATIN POWDER 15 GM BOTTLE TOP SCH ×2 (08:53→21:11)
[2019-03-13] MEDS: amLODIPine 2.5 MG TABLET PO SCH (12:15)
[2019-03-13] MEDS: MEMANTINE 10 MG TABLET PO SCH (21:10)
[2019-03-13] MEDS: DONEPEZIL 10 MG TABLET PO SCH (21:10)
[2019-03-13] MEDS: PARoxetine 20 MG TABLET PO SCH (21:10)
[2019-03-14] MEDS: ALBUTEROL/IPRATROPIUM 3 ML NEB RESP TX SCH ×5 (01:39→18:51)
[2019-03-14] MEDS: methylPREDNISolone SOD SUC 40 MG/1 ML VIAL IV SCH ×2 (03:53→17:17)
[2019-03-14] MEDS: LEVOTHYROXINE 88 MCG TABLET PO SCH (05:34)
[2019-03-14 08:49] LABS: Basophils % 0.2 % (0.0-0.8); Eosinophils % 0.1 % (0.00-10.9); Hematocrit 39.1 VOL% (35.7-47.0); Hemoglobin 12.2 GM/DL (12.0-16.0); Immature Granulocytes % 1.2 %; Immature Granulocytes Absolute 0.23 #; Lymphocytes # 0.9 10*3/uL (1.4-4.0); Lymphocytes % 4.8 % (21.3-54.2); Mean Corpuscular HGB Conc 31.2 GM/DL (32-36); Mean Corpuscular Volume 105.7 FL (87-102); Mean Platelet Volume 10.5 FL (9.6-12.0); Monocytes % 4.3 % (1.7-12.7); Neutrophils % 89.4 % (38.7-73.9); Platelet Count 305 T/CUMM (130-400); Red Cell Distribution Width 14.4 % (9.3-17.3); White Blood Count 19.5 T/CUMM (4-12)
[2019-03-14] MEDS: MEGESTROL 400 MG/10 ML UDCUP PO SCH (09:07)
[2019-03-14] MEDS: guaiFENesin/DM ER 600-30 MG TABLET PO SCH ×2 (09:08→21:24)
[2019-03-14] MEDS: PANTOPRAZOLE 40 MG TABLET PO SCH (09:08)
[2019-03-14] MEDS: DOXYCYCLINE HYCLATE 100 MG CAPSULE PO SCH ×2 (09:08→21:24)
[2019-03-14] MEDS: NYSTATIN POWDER 15 GM BOTTLE TOP SCH ×2 (09:08→21:24)
[2019-03-14] MEDS: CLORAZEPATE 3.75 MG TABLET PO SCH (09:08)
[2019-03-14] MEDS: MEMANTINE 10 MG TABLET PO SCH ×2 (09:08→21:32)
[2019-03-14] MEDS: amLODIPine 2.5 MG TABLET PO SCH (09:08)
[2019-03-14 09:16] LABS: Anisocytosis Slight; Band Neutrophils 6 % (0-10); Lymphocytes 6 % (20-55); Macrocytosis Slight; Platelet Estimate Normal; Segmented Neutrophils 86 % (50-85); Total Cells Counted 100
[2019-03-14 09:17] LABS: Calcium 8.7 MG/DL (8.5-10.1); Osmolality,Calculated 291.7 MOS/KG (273-304)
[2019-03-14] MEDS ORDERED: CLORAZEPATE 3.75 MG TABLET PO PRN (12:48)
[2019-03-14] MEDS: DONEPEZIL 10 MG TABLET PO SCH (21:24)
[2019-03-14] MEDS: PARoxetine 20 MG TABLET PO SCH (21:25)
[2019-03-15] MEDS: ALBUTEROL/IPRATROPIUM 3 ML NEB RESP TX SCH ×4 (02:18→19:18)
[2019-03-15] MEDS: methylPREDNISolone SOD SUC 40 MG/1 ML VIAL IV SCH ×2 (03:32→15:36)
[2019-03-15 05:52] LABS: Basophils % 0.1 % (0.0-0.8); Eosinophils % 0.1 % (0.00-10.9); Hematocrit 35.7 VOL% (35.7-47.0); Hemoglobin 11.3 GM/DL (12.0-16.0); Immature Granulocytes % 1.4 %; Immature Granulocytes Absolute 0.24 #; Lymphocytes # 0.9 10*3/uL (1.4-4.0); Lymphocytes % 4.9 % (21.3-54.2); Mean Corpuscular HGB Conc 31.7 GM/DL (32-36); Mean Corpuscular Volume 103.5 FL (87-102); Mean Platelet Volume 10.8 FL (9.6-12.0); Monocytes % 7.1 % (1.7-12.7); Neutrophils % 86.4 % (38.7-73.9); Platelet Count 289 T/CUMM (130-400); Red Blood Count 3.45 MC/CUMM (3.8-5.5); Red Cell Distribution Width 14.1 % (9.3-17.3); White Blood Count 17.7 T/CUMM (4-12)
[2019-03-15 05:59] LABS: Calcium 8.5 MG/DL (8.5-10.1); Osmolality,Calculated 294.6 MOS/KG (273-304)
[2019-03-15 06:44] LABS: Anisocytosis 1+; Macrocytosis 1+; Platelet Estimate Normal
[2019-03-15] MEDS ORDERED: MEPERIDINE 50 MG/1 ML VIAL IM ONE (07:00)
[2019-03-15] MEDS ORDERED: PROMETHAZINE 25 MG/1 ML VIAL IM ONE (07:00)
[2019-03-15] MEDS ORDERED: LIDOCAINE 1% 20 ML VIAL MISC INJ ONE (07:30)
[2019-03-15] MEDS ORDERED: LIDOCAINE 2% 20 ML VIAL RESP TX ONE (07:30)
[2019-03-15] MEDS ORDERED: MIDAZOLAM 2 MG/2 ML VIAL IV ONE (07:30)
[2019-03-15] MEDS ORDERED: LIDOCAINE 2% VISCOUS 100 ML BOTTLE SWISH/SPIT ONE (07:30)
[2019-03-15] MEDS ORDERED: MIDAZOLAM 2 MG/2 ML VIAL ONE (07:40)
[2019-03-15] MEDS: PANTOPRAZOLE 40 MG TABLET PO SCH (11:51)
[2019-03-15] MEDS: MEGESTROL 400 MG/10 ML UDCUP PO SCH (11:51)
[2019-03-15] MEDS: DOXYCYCLINE HYCLATE 100 MG CAPSULE PO SCH ×2 (11:51→21:21)
[2019-03-15] MEDS: guaiFENesin/DM ER 600-30 MG TABLET PO SCH ×2 (11:51→21:21)
[2019-03-15] MEDS: LEVOTHYROXINE 88 MCG TABLET PO SCH (11:51)
[2019-03-15] MEDS: amLODIPine 2.5 MG TABLET PO SCH (11:51)
[2019-03-15] MEDS: MEMANTINE 10 MG TABLET PO SCH ×2 (11:51→21:21)
[2019-03-15] MEDS: NYSTATIN POWDER 15 GM BOTTLE TOP SCH (11:52)
[2019-03-15] MEDS: DONEPEZIL 10 MG TABLET PO SCH (21:21)
[2019-03-15] MEDS: PARoxetine 20 MG TABLET PO SCH (21:21)
[2019-03-16] MEDS: ALBUTEROL/IPRATROPIUM 3 ML NEB RESP TX SCH ×4 (00:42→19:07)
[2019-03-16] MEDS: methylPREDNISolone SOD SUC 40 MG/1 ML VIAL IV SCH (04:25)
[2019-03-16 05:16] LABS: Basophils % 0.1 % (0.0-0.8); Hematocrit 34.9 VOL% (35.7-47.0); Hemoglobin 11.1 GM/DL (12.0-16.0); Immature Granulocytes % 1.9 %; Immature Granulocytes Absolute 0.31 #; Lymphocytes # 0.9 10*3/uL (1.4-4.0); Lymphocytes % 5.7 % (21.3-54.2); Mean Corpuscular HGB Conc 31.8 GM/DL (32-36); Mean Corpuscular Volume 102.6 FL (87-102); Mean Platelet Volume 11.3 FL (9.6-12.0); Monocytes % 9.8 % (1.7-12.7); NRBC # 0.02 10*3/uL; Neutrophils % 82.5 % (38.7-73.9); Platelet Count 283 T/CUMM (130-400); Red Cell Distribution Width 14.1 % (9.3-17.3)
[2019-03-16 05:32] LABS: Calcium 8.6 MG/DL (8.5-10.1); Osmolality,Calculated 294.6 MOS/KG (273-304)
[2019-03-16] MEDS: LEVOTHYROXINE 88 MCG TABLET PO SCH (06:30)
[2019-03-16] MEDS: NYSTATIN POWDER 15 GM BOTTLE TOP SCH ×3 (06:30→20:01)
[2019-03-16] MEDS: amLODIPine 2.5 MG TABLET PO SCH (08:26)
[2019-03-16] MEDS: DOXYCYCLINE HYCLATE 100 MG CAPSULE PO SCH ×2 (08:26→20:01)
[2019-03-16] MEDS: guaiFENesin/DM ER 600-30 MG TABLET PO SCH ×2 (08:26→20:01)
[2019-03-16] MEDS: MEMANTINE 10 MG TABLET PO SCH ×2 (08:27→20:01)
[2019-03-16] MEDS: PANTOPRAZOLE 40 MG TABLET PO SCH (08:27)
[2019-03-16] MEDS: MEGESTROL 400 MG/10 ML UDCUP PO SCH (08:27)
[2019-03-16] MEDS ORDERED: predniSONE 20 MG TABLET PO SCH (09:30)
[2019-03-16] MEDS: predniSONE 10 MG TABLET PO SCH (10:13)
[2019-03-16] MEDS: DONEPEZIL 10 MG TABLET PO SCH (20:01)
[2019-03-16] MEDS: PARoxetine 20 MG TABLET PO SCH (20:01)
[2019-03-17] MEDS: ALBUTEROL/IPRATROPIUM 3 ML NEB RESP TX SCH ×3 (01:26→13:15)
[2019-03-17] MEDS: BENZONATATE 100 MG CAPSULE PO PRN ×2 (02:00→09:27)
[2019-03-17 04:28] LABS: Basophils # 0.1 10*3/uL (0.0-0.2); Basophils % 0.3 % (0.0-0.8); Hematocrit 35.6 VOL% (35.7-47.0); Hemoglobin 11.4 GM/DL (12.0-16.0); Immature Granulocytes % 3.4 %; Lymphocytes # 1.6 10*3/uL (1.4-4.0); Lymphocytes % 7.7 % (21.3-54.2); Mean Corpuscular Volume 103.5 FL (87-102); Mean Platelet Volume 10.6 FL (9.6-12.0); Monocytes % 10.5 % (1.7-12.7); NRBC # 0.04 10*3/uL; Neutrophils % 78.1 % (38.7-73.9); Platelet Count 284 T/CUMM (130-400); Red Blood Count 3.44 MC/CUMM (3.8-5.5); Red Cell Distribution Width 14.2 % (9.3-17.3); White Blood Count 20.7 T/CUMM (4-12)
[2019-03-17 04:57] LABS: Calcium 8.1 MG/DL (8.5-10.1); Osmolality,Calculated 295.4 MOS/KG (273-304)
[2019-03-17 05:12] LABS: Band Neutrophils 1 % (0-10); Lymphocytes 8 % (20-55); Metamyelocytes 1 %; Nucleated Red Blood Cells 1 (0-5); Segmented Neutrophils 82 % (50-85); Total Cells Counted 100
[2019-03-17 05:13] LABS: Anisocytosis Slight
[2019-03-17 05:14] LABS: Microcytosis Slight; Polychromasia Slight
[2019-03-17 05:15] LABS: Spherocytes Slight
[2019-03-17 05:16] LABS: Ovalocytes Slight; Platelet Estimate Normal
[2019-03-17] MEDS: LEVOTHYROXINE 88 MCG TABLET PO SCH (06:40)
[2019-03-17] MEDS: PANTOPRAZOLE 40 MG TABLET PO SCH (09:27)
[2019-03-17] MEDS: MEMANTINE 10 MG TABLET PO SCH (09:27)
[2019-03-17] MEDS: POTASSIUM CHLORIDE 20 MEQ TABLET PO PRN ×2 (09:27→12:28)
[2019-03-17] MEDS: predniSONE 10 MG TABLET PO SCH (09:27)
[2019-03-17] MEDS: amLODIPine 2.5 MG TABLET PO SCH (09:28)
[2019-03-17] MEDS: guaiFENesin/DM ER 600-30 MG TABLET PO SCH (09:28)
[2019-03-17] MEDS: MEGESTROL 400 MG/10 ML UDCUP PO SCH (09:28)
[2019-03-17] MEDS: NYSTATIN POWDER 15 GM BOTTLE TOP SCH (09:28)
[2019-03-17] MEDS: DOXYCYCLINE HYCLATE 100 MG CAPSULE PO SCH (09:28)
[2019-03-17 12:10] VITALS: BP 151/75
== END 2019-03-17 13:55 | DRG 166 ==
LOC: N.ED 23:37 → N.EDINP 03-12 04:00 → N.TELES 03-12 04:31
PROVIDERS: ADMIT Internal Medicine; ATTEND Internal Medicine

== ENCOUNTER 2019-04-27 10:17 | Inpatient (IN) ==
[2019-04-27] MEDS ORDERED: SODIUM CHLORIDE 0.9% 500 ML IV STA (11:22)
[2019-04-27 12:10] LABS: Basophils # 0.1 10*3/uL (0.0-0.2); Basophils % 0.5 % (0.0-0.8); Eosinophils # 0.1 10*3/uL (0.0-0.87); Eosinophils % 0.2 % (0.00-10.9); Hemoglobin 14.8 GM/DL (12.0-16.0); Immature Granulocytes % 4.1 %; Immature Granulocytes Absolute 0.87 #; Lymphocytes # 1.1 10*3/uL (1.4-4.0); Lymphocytes % 5.2 % (21.3-54.2); Mean Corpuscular HGB Conc 32.2 GM/DL (32-36); Mean Corpuscular Volume 103.6 FL (87-102); Monocytes % 6.4 % (1.7-12.7); NRBC # 0.04 10*3/uL; Neutrophils % 83.6 % (38.7-73.9); Platelet Count 282 T/CUMM (130-400); Red Blood Count 4.44 MC/CUMM (3.8-5.5); Red Cell Distribution Width 16.7 % (9.3-17.3); White Blood Count 21.2 T/CUMM (4-12)
[2019-04-27 12:31] LABS: Hypochromasia 1+; Lymphocytes 6 % (20-55); Nucleated Red Blood Cells 1 (0-5); Segmented Neutrophils 91 % (50-85); Total Cells Counted 100
[2019-04-27 12:32] LABS: Macrocytosis 1+; Platelet Estimate Normal
[2019-04-27 12:41] LABS: Albumin 3.7 G/DL (3.4-5.0); Bilirubin,Total 0.5 MG/DL (0.2-1.0); Calcium 9.3 MG/DL (8.5-10.1); Osmolality,Calculated 287.3 MOS/KG (273-304)
[2019-04-27 13:40] LABS: Apearance,Urine CLEAR (Clear); Bacteria,Urine Occasional /HPF (Few); Bilirubin,Urine Negative (Negative); Blood, Urine Small mg/dL (Negative); Glucose,Urine (UA) Negative (Negative); Hyaline Casts,Urine 12 /LPF (0-3); Ketones,Urine Negative (Negative); Mucus,Urine Occasional /LPF (Occasional); Nitrite,Urine Negative (Negative); Protein,Urine 100 MG/DL; RBC,Urine 3 /HPF (0-4); Squamous Epithelial Cell,Urine Occasional /HPF (0-10); Urine Color Yellow (Yellow); Urine Specific Gravity 1.019 (1.001-1.035); Urine Urobilinogen < 2.0 EU/DL (0.2-1.0); WBC,Urine 1 /HPF (0-6)
[2019-04-27] MEDS ORDERED: ACETAMINOPHEN 325 MG TABLET PO PRN (14:44)
[2019-04-27] MEDS ORDERED: ONDANSETRON 4 MG/2 ML VIAL IV PRN (14:44)
[2019-04-27] MEDS ORDERED: CLORAZEPATE 3.75 MG TABLET PO PRN (14:47)
[2019-04-27] MEDS ORDERED: BENZONATATE 100 MG CAPSULE PO PRN (14:47)
[2019-04-27] MEDS ORDERED: PIRFENIDONE PO SCH (15:00)
[2019-04-27] MEDS: SODIUM CHLORIDE 0.9% 1,000 ML IV SCH (15:52)
[2019-04-27] MEDS: FLUCONAZOLE INJ 200 MG in PREMIX 1 EACH IV SCH (15:54)
[2019-04-27] MEDS: guaiFENesin/DM ER 600-30 MG TABLET PO SCH (15:59)
[2019-04-27] MEDS: PARoxetine 20 MG TABLET PO SCH (22:15)
[2019-04-27] MEDS: MEMANTINE 10 MG TABLET PO SCH (22:15)
[2019-04-27] MEDS: ENOXAPARIN 30 MG/0.3 ML SYRINGE SUBCUT SCH (22:15)
[2019-04-27] MEDS: PRAMIPEXOLE 0.25 MG TABLET PO PRN (22:16)
[2019-04-28] MEDS: guaiFENesin/DM ER 600-30 MG TABLET PO SCH ×2 (02:47→15:27)
[2019-04-28] MEDS: SODIUM CHLORIDE 0.9% 1,000 ML IV SCH ×3 (05:02→18:55)
[2019-04-28 05:56] LABS: Basophils # 0.1 10*3/uL (0.0-0.2); Basophils % 0.4 % (0.0-0.8); Eosinophils # 0.1 10*3/uL (0.0-0.87); Eosinophils % 0.6 % (0.00-10.9); Hematocrit 38.2 VOL% (35.7-47.0); Hemoglobin 12.3 GM/DL (12.0-16.0); Immature Granulocytes % 2.5 %; Immature Granulocytes Absolute 0.37 #; Lymphocytes # 1.3 10*3/uL (1.4-4.0); Lymphocytes % 8.9 % (21.3-54.2); Mean Corpuscular HGB Conc 32.2 GM/DL (32-36); Mean Corpuscular Volume 104.7 FL (87-102); Mean Platelet Volume 10.5 FL (9.6-12.0); Monocytes % 7.9 % (1.7-12.7); NRBC # 0.04 10*3/uL; Neutrophils % 79.7 % (38.7-73.9); Platelet Count 202 T/CUMM (130-400); Red Blood Count 3.65 MC/CUMM (3.8-5.5); Red Cell Distribution Width 16.7 % (9.3-17.3); White Blood Count 14.6 T/CUMM (4-12)
[2019-04-28 06:34] LABS: Calcium 8.4 MG/DL (8.5-10.1); Risk Ratio 2.5; Thyroid Stimulating Hormone 0.509 uIU/ml (0.358-3.74); VLDL CHOLESTEROL 26.4 MG/DL
[2019-04-28] MEDS ORDERED: FLUTICASONE 50 MCG NASAL SPRAY 16 GM BOTTLE BOTH NARES SCH (09:00)
[2019-04-28] MEDS: MEGESTROL 400 MG/10 ML UDCUP PO SCH (12:19)
[2019-04-28] MEDS: amLODIPine 2.5 MG TABLET PO SCH (12:19)
[2019-04-28] MEDS: DONEPEZIL 10 MG TABLET PO SCH (12:19)
[2019-04-28] MEDS: THEOPHYLLINE ER (24 HR) 200 MG CAPSULE PO SCH (12:19)
[2019-04-28] MEDS: LEVOTHYROXINE 88 MCG TABLET PO SCH (12:20)
[2019-04-28] MEDS: MEMANTINE 10 MG TABLET PO SCH ×2 (12:20→22:02)
[2019-04-28] MEDS: LACTOBACILLUS RHAMNOSUS GG CAPSULE PO SCH (12:20)
[2019-04-28] MEDS: PANTOPRAZOLE 40 MG TABLET PO SCH (12:20)
[2019-04-28] MEDS: FLUCONAZOLE INJ 200 MG in PREMIX 1 EACH IV SCH (17:18)
[2019-04-28] MEDS: PARoxetine 20 MG TABLET PO SCH (21:54)
[2019-04-28] MEDS: PRAMIPEXOLE 0.25 MG TABLET PO PRN (21:54)
[2019-04-28] MEDS: ENOXAPARIN 30 MG/0.3 ML SYRINGE SUBCUT SCH (22:02)
[2019-04-29] MEDS: guaiFENesin/DM ER 600-30 MG TABLET PO SCH ×2 (03:07→16:20)
[2019-04-29 05:20] LABS: Basophils # 0.1 10*3/uL (0.0-0.2); Basophils % 0.5 % (0.0-0.8); Eosinophils # 0.4 10*3/uL (0.0-0.87); Eosinophils % 2.3 % (0.00-10.9); Hematocrit 39.4 VOL% (35.7-47.0); Hemoglobin 12.8 GM/DL (12.0-16.0); Immature Granulocytes % 2.4 %; Immature Granulocytes Absolute 0.36 #; Lymphocytes # 1.6 10*3/uL (1.4-4.0); Lymphocytes % 10.7 % (21.3-54.2); Mean Corpuscular HGB Conc 32.5 GM/DL (32-36); Mean Corpuscular Volume 103.1 FL (87-102); Mean Platelet Volume 10.2 FL (9.6-12.0); Monocytes % 7.1 % (1.7-12.7); NRBC # 0.03 10*3/uL; Platelet Count 212 T/CUMM (130-400); Red Blood Count 3.82 MC/CUMM (3.8-5.5); Red Cell Distribution Width 15.8 % (9.3-17.3); White Blood Count 15.3 T/CUMM (4-12)
[2019-04-29 06:02] LABS: Calcium 8.3 MG/DL (8.5-10.1); Osmolality,Calculated 273.7 MOS/KG (273-304)
[2019-04-29] MEDS: LEVOTHYROXINE 88 MCG TABLET PO SCH (06:25)
[2019-04-29] MEDS: THEOPHYLLINE ER (24 HR) 200 MG CAPSULE PO SCH (09:31)
[2019-04-29] MEDS: DONEPEZIL 10 MG TABLET PO SCH (09:31)
[2019-04-29] MEDS: MEMANTINE 10 MG TABLET PO SCH ×2 (09:31→21:08)
[2019-04-29] MEDS: PANTOPRAZOLE 40 MG TABLET PO SCH (09:31)
[2019-04-29] MEDS: MEGESTROL 400 MG/10 ML UDCUP PO SCH (09:31)
[2019-04-29] MEDS: amLODIPine 2.5 MG TABLET PO SCH (09:31)
[2019-04-29] MEDS: LACTOBACILLUS RHAMNOSUS GG CAPSULE PO SCH (09:32)
[2019-04-29] MEDS: SODIUM CHLORIDE 0.9% 1,000 ML IV SCH (09:42)
[2019-04-29] MEDS: POTASSIUM CHLORIDE RIDER 10 MEQ in PREMIX 1 EACH IV PRN ×4 (11:07→14:45)
[2019-04-29] MEDS: DEXTROSE 5% NACL 0.45% 1,000 ML IV SCH (11:30)
[2019-04-29] MEDS: FLUCONAZOLE INJ 400 MG in PREMIX 1 EACH IV SCH (16:20)
[2019-04-29] MEDS: PRAMIPEXOLE 0.25 MG TABLET PO PRN (21:07)
[2019-04-29] MEDS: PARoxetine 20 MG TABLET PO SCH (21:08)
[2019-04-30 06:00] LABS: Basophils # 0.1 10*3/uL (0.0-0.2); Basophils % 0.6 % (0.0-0.8); Eosinophils # 0.3 10*3/uL (0.0-0.87); Eosinophils % 2.5 % (0.00-10.9); Hematocrit 39.2 VOL% (35.7-47.0); Hemoglobin 12.7 GM/DL (12.0-16.0); Immature Granulocytes % 2.8 %; Immature Granulocytes Absolute 0.36 #; Lymphocytes # 1.4 10*3/uL (1.4-4.0); Lymphocytes % 10.7 % (21.3-54.2); Mean Corpuscular HGB Conc 32.4 GM/DL (32-36); Mean Corpuscular Volume 101.8 FL (87-102); Monocytes % 7.4 % (1.7-12.7); Platelet Count 220 T/CUMM (130-400); Red Blood Count 3.85 MC/CUMM (3.8-5.5); Red Cell Distribution Width 15.6 % (9.3-17.3)
[2019-04-30] MEDS: DEXTROSE 5% NACL 0.45% 1,000 ML IV SCH ×2 (06:19→21:50)
[2019-04-30 06:20] LABS: Calcium 8.3 MG/DL (8.5-10.1); Osmolality,Calculated 271.8 MOS/KG (273-304)
[2019-04-30] MEDS: guaiFENesin/DM ER 600-30 MG TABLET PO SCH ×2 (06:20→17:03)
[2019-04-30] MEDS: LEVOTHYROXINE 88 MCG TABLET PO SCH (06:20)
[2019-04-30] MEDS: THEOPHYLLINE ER (24 HR) 200 MG CAPSULE PO SCH (09:44)
[2019-04-30] MEDS: MEGESTROL 400 MG/10 ML UDCUP PO SCH (09:44)
[2019-04-30] MEDS: LACTOBACILLUS RHAMNOSUS GG CAPSULE PO SCH (09:44)
[2019-04-30] MEDS: PANTOPRAZOLE 40 MG TABLET PO SCH (09:45)
[2019-04-30] MEDS: DONEPEZIL 10 MG TABLET PO SCH (09:45)
[2019-04-30] MEDS: MEMANTINE 10 MG TABLET PO SCH ×2 (09:45→21:41)
[2019-04-30] MEDS: amLODIPine 2.5 MG TABLET PO SCH (09:45)
[2019-04-30] MEDS: FLUCONAZOLE INJ 400 MG in PREMIX 1 EACH IV SCH (17:03)
[2019-04-30] MEDS: PARoxetine 20 MG TABLET PO SCH (21:40)
[2019-04-30] MEDS: PRAMIPEXOLE 0.25 MG TABLET PO PRN (21:41)
[2019-04-30] MEDS: POTASSIUM CHLORIDE RIDER 10 MEQ in PREMIX 1 EACH IV PRN (21:45)
[2019-05-01] MEDS: POTASSIUM CHLORIDE RIDER 10 MEQ in PREMIX 1 EACH IV PRN (00:30)
[2019-05-01 05:20] LABS: Basophils # 0.1 10*3/uL (0.0-0.2); Basophils % 0.5 % (0.0-0.8); Eosinophils # 0.3 10*3/uL (0.0-0.87); Hematocrit 37.5 VOL% (35.7-47.0); Immature Granulocytes % 4.1 %; Immature Granulocytes Absolute 0.58 #; Lymphocytes # 1.4 10*3/uL (1.4-4.0); Mean Corpuscular Volume 102.5 FL (87-102); Mean Platelet Volume 10.5 FL (9.6-12.0); Neutrophils % 75.4 % (38.7-73.9); Platelet Count 215 T/CUMM (130-400); Red Blood Count 3.66 MC/CUMM (3.8-5.5); Red Cell Distribution Width 15.7 % (9.3-17.3); White Blood Count 14.1 T/CUMM (4-12)
[2019-05-01] MEDS: guaiFENesin/DM ER 600-30 MG TABLET PO SCH ×2 (05:38→15:38)
[2019-05-01 05:53] LABS: Band Neutrophils 1 % (0-10); Calcium 8.3 MG/DL (8.5-10.1); Eosinophils 2 % (0-10); Lymphocytes 13 % (20-55); Osmolality,Calculated 272.7 MOS/KG (273-304); Platelet Estimate Adequate; Segmented Neutrophils 78 % (50-85); Total Cells Counted 100
[2019-05-01 05:54] LABS: Hypochromasia Slight
[2019-05-01] MEDS: LEVOTHYROXINE 88 MCG TABLET PO SCH (07:50)
[2019-05-01] MEDS: MEGESTROL 400 MG/10 ML UDCUP PO SCH (08:59)
[2019-05-01] MEDS: DONEPEZIL 10 MG TABLET PO SCH (08:59)
[2019-05-01] MEDS: MEMANTINE 10 MG TABLET PO SCH ×2 (08:59→20:50)
[2019-05-01] MEDS: LACTOBACILLUS RHAMNOSUS GG CAPSULE PO SCH (08:59)
[2019-05-01] MEDS: PANTOPRAZOLE 40 MG TABLET PO SCH (09:00)
[2019-05-01] MEDS: amLODIPine 2.5 MG TABLET PO SCH (09:00)
[2019-05-01] MEDS: THEOPHYLLINE ER (24 HR) 200 MG CAPSULE PO SCH (09:00)
[2019-05-01] MEDS: PIPERACILLIN/TAZOBACTAM 3,375 MG in SODIUM CHLORIDE 0.9% 100 ML IV SCH ×2 (09:44→18:31)
[2019-05-01] MEDS: DEXTROSE 5% NACL 0.45% 1,000 ML IV SCH (11:00)
[2019-05-01] MEDS ORDERED: LIDOCAINE 1% 5 ML VIAL ONE (13:25)
[2019-05-01] MEDS ORDERED: PROPOFOL 200 MG/20 ML VIAL IV ONE (13:25)
[2019-05-01] MEDS: FLUCONAZOLE INJ 400 MG in PREMIX 1 EACH IV SCH (16:14)
[2019-05-01] MEDS: PARoxetine 20 MG TABLET PO SCH (20:50)
[2019-05-02] MEDS: PIPERACILLIN/TAZOBACTAM 3,375 MG in SODIUM CHLORIDE 0.9% 100 ML IV SCH ×3 (01:45→16:36)
[2019-05-02] MEDS: guaiFENesin/DM ER 600-30 MG TABLET PO SCH ×2 (06:12→21:13)
[2019-05-02] MEDS: LEVOTHYROXINE 88 MCG TABLET PO SCH (06:12)
[2019-05-02] MEDS: DEXTROSE 5% NACL 0.45% 1,000 ML IV SCH (08:38)
[2019-05-02] MEDS: amLODIPine 2.5 MG TABLET PO SCH (08:39)
[2019-05-02] MEDS: THEOPHYLLINE ER (24 HR) 200 MG CAPSULE PO SCH (08:39)
[2019-05-02] MEDS: DONEPEZIL 10 MG TABLET PO SCH (08:39)
[2019-05-02] MEDS: MEGESTROL 400 MG/10 ML UDCUP PO SCH (08:40)
[2019-05-02] MEDS: MEMANTINE 10 MG TABLET PO SCH ×2 (08:40→21:14)
[2019-05-02] MEDS: PANTOPRAZOLE 40 MG TABLET PO SCH (08:40)
[2019-05-02] MEDS: LACTOBACILLUS RHAMNOSUS GG CAPSULE PO SCH (08:40)
[2019-05-02] MEDS: FLUCONAZOLE INJ 400 MG in PREMIX 1 EACH IV SCH (21:13)
[2019-05-02] MEDS: PARoxetine 20 MG TABLET PO SCH (21:14)
[2019-05-03] MEDS: PIPERACILLIN/TAZOBACTAM 3,375 MG in SODIUM CHLORIDE 0.9% 100 ML IV SCH ×2 (01:18→08:36)
[2019-05-03] MEDS: DEXTROSE 5% NACL 0.45% 1,000 ML IV SCH ×2 (06:00→14:33)
[2019-05-03] MEDS: LEVOTHYROXINE 88 MCG TABLET PO SCH (06:03)
[2019-05-03] MEDS: PANTOPRAZOLE 40 MG TABLET PO SCH (08:34)
[2019-05-03] MEDS: MEGESTROL 400 MG/10 ML UDCUP PO SCH (08:34)
[2019-05-03] MEDS: amLODIPine 2.5 MG TABLET PO SCH (08:35)
[2019-05-03] MEDS: LACTOBACILLUS RHAMNOSUS GG CAPSULE PO SCH (08:35)
[2019-05-03] MEDS: THEOPHYLLINE ER (24 HR) 200 MG CAPSULE PO SCH (08:35)
[2019-05-03] MEDS: guaiFENesin/DM ER 600-30 MG TABLET PO SCH ×2 (10:17→20:29)
[2019-05-03] MEDS ORDERED: TUBERCULIN SKIN TEST 0.1 ML SYRINGE INTRADERM ONE (15:30)
[2019-05-03] MEDS: PRAMIPEXOLE 0.25 MG TABLET PO PRN (20:29)
[2019-05-03] MEDS: PARoxetine 20 MG TABLET PO SCH (20:33)
[2019-05-03] MEDS: FLUCONAZOLE INJ 400 MG in PREMIX 1 EACH IV SCH (20:34)
[2019-05-04] MEDS: LEVOTHYROXINE 88 MCG TABLET PO SCH (06:32)
[2019-05-04] MEDS: amLODIPine 2.5 MG TABLET PO SCH (08:09)
[2019-05-04] MEDS: guaiFENesin/DM ER 600-30 MG TABLET PO SCH (08:09)
[2019-05-04] MEDS: LACTOBACILLUS RHAMNOSUS GG CAPSULE PO SCH (08:09)
[2019-05-04] MEDS: PANTOPRAZOLE 40 MG TABLET PO SCH (08:09)
[2019-05-04] MEDS: THEOPHYLLINE ER (24 HR) 200 MG CAPSULE PO SCH (08:09)
[2019-05-04] MEDS: MEGESTROL 400 MG/10 ML UDCUP PO SCH (08:09)
[2019-05-04 13:41] VITALS: BP 126/66
== END 2019-05-04 13:03 | disposition home health service (06) | DRG 392 ==
LOC: N.ED 10:17 → SUATTDRO 13:43 → N.EDINP 13:43 → N.5E 14:44
PROVIDERS: ADMIT Internal Medicine; ATTEND Hospitalist

== ENCOUNTER 2019-05-26 17:13 | Inpatient (IN) ==
[2019-05-26] MEDS ORDERED: SODIUM CHLORIDE 0.9% 500 ML IV STA (17:40)
[2019-05-26 18:36] LABS: Apearance,Urine Slightly Hazy (Clear); Bacteria,Urine Many /HPF (Few); Bilirubin,Urine Negative (Negative); Blood, Urine Small mg/dL (Negative); Glucose,Urine (UA) Negative (Negative); Ketones,Urine Negative (Negative); Mucus,Urine Many /LPF (Occasional); Nitrite,Urine Negative (Negative); Protein,Urine 30 MG/DL; RBC,Urine 16 /HPF (0-4); Squamous Epithelial Cell,Urine Occasional /HPF (0-10); Urine Color Amber (Yellow); Urine Specific Gravity 1.024 (1.001-1.035); Urine Urobilinogen < 2.0 EU/DL (0.2-1.0); WBC,Urine 181 /HPF (0-6)
[2019-05-26 18:36] LABS: Basophils # 0.2 10*3/uL (0.0-0.2); Basophils % 0.4 % (0.0-0.8); Eosinophils % 0.1 % (0.00-10.9); Hematocrit 56.9 VOL% (35.7-47.0); Hemoglobin 17.8 GM/DL (12.0-16.0); Immature Granulocytes % 2.8 %; Immature Granulocytes Absolute 0.95 #; Lymphocytes # 1.2 10*3/uL (1.4-4.0); Lymphocytes % 3.4 % (21.3-54.2); Mean Corpuscular HGB Conc 31.3 GM/DL (32-36); Mean Corpuscular Volume 103.8 FL (87-102); Mean Platelet Volume 12.1 FL (9.6-12.0); Monocytes % 3.8 % (1.7-12.7); NRBC # 0.14 10*3/uL; Neutrophils % 89.5 % (38.7-73.9); Platelet Count 219 T/CUMM (130-400); Red Blood Count 5.48 MC/CUMM (3.8-5.5); Red Cell Distribution Width 16.3 % (9.3-17.3); White Blood Count 34.5 T/CUMM (4-12)
[2019-05-26 18:48] LABS: INR 1.2; PT Patient Result 13.2 SECS; Partial Thromboplastin Time < 21.0 SECS (0-40)
[2019-05-26 18:58] LABS: Albumin 3.3 G/DL (3.4-5.0); Bilirubin,Total 0.6 MG/DL (0.2-1.0); CKMB % 7.6 %; Calcium 9.4 MG/DL (8.5-10.1); Osmolality,Calculated 330.7 MOS/KG (273-304); Total Protein 7.3 G/DL (6.4-8.3)
[2019-05-26 18:59] LABS: Troponin I 0.496 NG/ML (0.00-0.045)
[2019-05-26 19:11] LABS: Lymphocytes 5 % (20-55); Nucleated Red Blood Cells 1 (0-5); Polychromasia Few; Segmented Neutrophils 92 % (50-85); Total Cells Counted 100
[2019-05-26 19:12] LABS: Platelet Estimate Adequate
[2019-05-26] MEDS ORDERED: VANCOMYCIN INJ 1,000 MG in SODIUM CHLORIDE 0.9% 250 ML IV STA (19:59)
[2019-05-26] MEDS ORDERED: SODIUM CHLORIDE 0.9% 1,000 ML IV STA (19:59)
[2019-05-26] MEDS ORDERED: PIPERACILLIN/TAZOBACTAM 3,375 MG in SODIUM CHLORIDE 0.9% 100 ML IV STA (20:27)
[2019-05-26] MEDS ORDERED: DEXTROSE 5% 1,000 ML IV SCH (20:30)
[2019-05-26] MEDS ORDERED: VANCOMYCIN INJ 1,000 MG in SODIUM CHLORIDE 0.9% 100 ML IV STA (21:13)
[2019-05-26] MEDS ORDERED: BISACODYL 10 MG SUPP RECTAL PRN (23:59)
[2019-05-26] MEDS ORDERED: BENZONATATE 100 MG CAPSULE PO PRN (23:59)
[2019-05-26] MEDS ORDERED: PRAMIPEXOLE 0.25 MG TABLET PO PRN (23:59)
[2019-05-26] MEDS ORDERED: IPRATROPIUM 500 MCG/2.5 ML NEB RESP TX PRN (23:59)
[2019-05-26] MEDS ORDERED: PIRFENIDONE PO SCH (23:59)
[2019-05-26] MEDS ORDERED: ONDANSETRON 4 MG/2 ML VIAL IV PRN (23:59)
[2019-05-27 02:51] LABS: Basophils # 0.1 10*3/uL (0.0-0.2); Basophils % 0.3 % (0.0-0.8); Hematocrit 46.2 VOL% (35.7-47.0); Hemoglobin 14.2 GM/DL (12.0-16.0); Immature Granulocytes % 2.8 %; Immature Granulocytes Absolute 0.78 #; Lymphocytes # 1.3 10*3/uL (1.4-4.0); Lymphocytes % 4.6 % (21.3-54.2); Mean Corpuscular HGB Conc 30.7 GM/DL (32-36); Mean Corpuscular Volume 103.8 FL (87-102); Mean Platelet Volume 11.9 FL (9.6-12.0); Monocytes % 4.9 % (1.7-12.7); NRBC # 0.13 10*3/uL; Neutrophils % 87.4 % (38.7-73.9); Platelet Count 174 T/CUMM (130-400); Red Blood Count 4.45 MC/CUMM (3.8-5.5); Red Cell Distribution Width 16.1 % (9.3-17.3); White Blood Count 27.8 T/CUMM (4-12)
[2019-05-27] MEDS ORDERED: VANCOMYCIN INJ 1,000 MG in SODIUM CHLORIDE 0.9% 250 ML IV ONE (03:00)
[2019-05-27 03:28] LABS: Calcium 7.9 MG/DL (8.5-10.1); Osmolality,Calculated 329.2 MOS/KG (273-304); Thyroid Stimulating Hormone 0.282 uIU/ml (0.358-3.74)
[2019-05-27] MEDS: SODIUM CHLORIDE 23.4% CONC INJ 38.5 MEQ in STERILE WATER INJ 1,000 ML IV SCH ×2 (03:36→11:08)
[2019-05-27] MEDS: MEMANTINE 10 MG TABLET PO SCH ×3 (03:43→21:56)
[2019-05-27] MEDS: DEXTROMETHORPHAN ER 6 MG/ML 90 ML/BOTTLE PO SCH ×3 (03:43→21:56)
[2019-05-27] MEDS: guaiFENesin 200 MG/10 ML UDCUP PO SCH ×3 (03:44→21:56)
[2019-05-27] MEDS: PANTOPRAZOLE 40 MG TABLET PO SCH ×3 (03:45→21:56)
[2019-05-27 03:58] LABS: Anisocytosis 1+; Eosinophils 1 % (0-10); Lymphocytes 13 % (20-55); Macrocytosis 1+; Microcytosis 1+; Nucleated Red Blood Cells 2 (0-5); Ovalocytes Few; Segmented Neutrophils 85 % (50-85); Total Cells Counted 100
[2019-05-27 03:59] LABS: Platelet Estimate Adequate; Polychromasia Few
[2019-05-27] MEDS: POTASSIUM CHLORIDE RIDER 10 MEQ in PREMIX 1 EACH IV PRN ×5 (06:14→16:21)
[2019-05-27] MEDS: ENOXAPARIN 40 MG/0.4 ML SYRINGE SUBCUT SCH (06:15)
[2019-05-27] MEDS: LEVOTHYROXINE 88 MCG TABLET PO SCH (06:23)
[2019-05-27] MEDS: PIPERACILLIN/TAZOBACTAM 3,375 MG in SODIUM CHLORIDE 0.9% 100 ML IV SCH ×2 (08:54→16:51)
[2019-05-27] MEDS: DONEPEZIL 10 MG TABLET PO SCH (09:00)
[2019-05-27] MEDS: ASPIRIN EC 81 MG TABLET PO SCH (09:00)
[2019-05-27] MEDS: FLUTICASONE 50 MCG NASAL SPRAY 16 GM BOTTLE BOTH NARES SCH (09:00)
[2019-05-27] MEDS: predniSONE 20 MG TABLET PO SCH (09:01)
[2019-05-27] MEDS: amLODIPine 2.5 MG TABLET PO SCH (09:01)
[2019-05-27] MEDS: THEOPHYLLINE ER (24 HR) 200 MG CAPSULE PO SCH (09:02)
[2019-05-27] MEDS: DEXTROSE 5% KCL 20 MEQ 20 MEQ/1,000 ML BAG IV SCH (11:13)
[2019-05-27] MEDS: DOCUSATE SODIUM 100 MG CAPSULE PO SCH (21:56)
[2019-05-28] MEDS: PIPERACILLIN/TAZOBACTAM 3,375 MG in SODIUM CHLORIDE 0.9% 100 ML IV SCH ×3 (01:13→16:43)
[2019-05-28] MEDS: DEXTROSE 5% KCL 20 MEQ 20 MEQ/1,000 ML BAG IV SCH ×3 (03:50→16:43)
[2019-05-28] MEDS: VANCOMYCIN INJ 1,000 MG in SODIUM CHLORIDE 0.9% 250 ML IV SCH (03:50)
[2019-05-28 05:23] LABS: Basophils # 0.1 10*3/uL (0.0-0.2); Basophils % 0.3 % (0.0-0.8); Eosinophils # 0.8 10*3/uL (0.0-0.87); Eosinophils % 3.4 % (0.00-10.9); Hematocrit 42.7 VOL% (35.7-47.0); Immature Granulocytes Absolute 0.46 #; Lymphocytes # 1.7 10*3/uL (1.4-4.0); Lymphocytes % 7.7 % (21.3-54.2); Mean Corpuscular HGB Conc 30.4 GM/DL (32-36); Mean Corpuscular Volume 106.8 FL (87-102); Mean Platelet Volume 12.4 FL (9.6-12.0); Monocytes % 5.3 % (1.7-12.7); NRBC # 0.13 10*3/uL; Neutrophils % 81.3 % (38.7-73.9); Platelet Count 127 T/CUMM (130-400); Red Cell Distribution Width 16.5 % (9.3-17.3); White Blood Count 22.5 T/CUMM (4-12)
[2019-05-28 05:25] LABS: Calcium 7.7 MG/DL (8.5-10.1); Osmolality,Calculated 306.3 MOS/KG (273-304)
[2019-05-28] MEDS: LEVOTHYROXINE 88 MCG TABLET PO SCH (05:29)
[2019-05-28] MEDS: ENOXAPARIN 40 MG/0.4 ML SYRINGE SUBCUT SCH (06:14)
[2019-05-28 06:42] LABS: Band Neutrophils 1 % (0-10); Eosinophils 4 % (0-10); Lymphocytes 5 % (20-55); Platelet Estimate Decreased; Segmented Neutrophils 86 % (50-85); Total Cells Counted 100
[2019-05-28 06:43] LABS: Anisocytosis 2+
[2019-05-28 06:45] LABS: Macrocytosis 2+; Ovalocytes 1+
[2019-05-28] MEDS: POTASSIUM CHLORIDE RIDER 10 MEQ in PREMIX 1 EACH IV PRN ×3 (08:10→12:51)
[2019-05-28] MEDS: ASPIRIN EC 81 MG TABLET PO SCH (08:39)
[2019-05-28] MEDS: DONEPEZIL 10 MG TABLET PO SCH (08:39)
[2019-05-28] MEDS: DEXTROMETHORPHAN ER 6 MG/ML 90 ML/BOTTLE PO SCH ×2 (08:40→21:10)
[2019-05-28] MEDS: FLUTICASONE 50 MCG NASAL SPRAY 16 GM BOTTLE BOTH NARES SCH (08:40)
[2019-05-28] MEDS: DOCUSATE SODIUM 100 MG CAPSULE PO SCH ×2 (08:40→21:09)
[2019-05-28] MEDS: LACTOBACILLUS RHAMNOSUS GG CAPSULE PO SCH (08:40)
[2019-05-28] MEDS: predniSONE 20 MG TABLET PO SCH (08:41)
[2019-05-28] MEDS: amLODIPine 2.5 MG TABLET PO SCH (08:41)
[2019-05-28] MEDS: MEMANTINE 10 MG TABLET PO SCH ×2 (08:41→21:10)
[2019-05-28] MEDS: guaiFENesin 200 MG/10 ML UDCUP PO SCH ×2 (08:42→21:10)
[2019-05-28] MEDS: THEOPHYLLINE ER (24 HR) 200 MG CAPSULE PO SCH (08:42)
[2019-05-28] MEDS: PANTOPRAZOLE 40 MG TABLET PO SCH ×2 (08:42→21:10)
[2019-05-28] MEDS: POTASSIUM CHLORIDE 10 MEQ TABLET PO SCH (09:11)
[2019-05-28] MEDS ORDERED: MAGNESIUM SULF RIDER 2 GM in PREMIX 1 EACH IV ONE (10:41)
[2019-05-29] MEDS: PIPERACILLIN/TAZOBACTAM 3,375 MG in SODIUM CHLORIDE 0.9% 100 ML IV SCH ×3 (01:43→17:19)
[2019-05-29 04:19] LABS: Basophils % 0.2 % (0.0-0.8); Eosinophils % 6.6 % (0.00-10.9); Hematocrit 37.8 VOL% (35.7-47.0); Hemoglobin 12.1 GM/DL (12.0-16.0); Immature Granulocytes % 1.7 %; Immature Granulocytes Absolute 0.25 #; Lymphocytes # 1.3 10*3/uL (1.4-4.0); Lymphocytes % 8.6 % (21.3-54.2); Mean Corpuscular Volume 103.3 FL (87-102); Mean Platelet Volume 12.9 FL (9.6-12.0); Monocytes % 5.4 % (1.7-12.7); NRBC # 0.04 10*3/uL; Neutrophils % 77.5 % (38.7-73.9); Platelet Count 124 T/CUMM (130-400); Red Blood Count 3.66 MC/CUMM (3.8-5.5); Red Cell Distribution Width 16.2 % (9.3-17.3); White Blood Count 15.1 T/CUMM (4-12)
[2019-05-29 04:36] LABS: Calcium 7.4 MG/DL (8.5-10.1)
[2019-05-29] MEDS: VANCOMYCIN INJ 1,000 MG in SODIUM CHLORIDE 0.9% 250 ML IV SCH (05:44)
[2019-05-29] MEDS: DEXTROSE 5% KCL 20 MEQ 20 MEQ/1,000 ML BAG IV SCH ×3 (05:49→23:52)
[2019-05-29] MEDS: LEVOTHYROXINE 88 MCG TABLET PO SCH (06:48)
[2019-05-29] MEDS: ENOXAPARIN 40 MG/0.4 ML SYRINGE SUBCUT SCH (06:48)
[2019-05-29] MEDS: POTASSIUM CHLORIDE RIDER 10 MEQ in PREMIX 1 EACH IV PRN ×3 (06:49→10:58)
[2019-05-29] MEDS: LACTOBACILLUS RHAMNOSUS GG CAPSULE PO SCH (08:37)
[2019-05-29] MEDS: DEXTROMETHORPHAN ER 6 MG/ML 90 ML/BOTTLE PO SCH ×2 (08:37→23:53)
[2019-05-29] MEDS: DONEPEZIL 10 MG TABLET PO SCH (08:37)
[2019-05-29] MEDS: DOCUSATE SODIUM 100 MG CAPSULE PO SCH ×2 (08:37→23:53)
[2019-05-29] MEDS: ASPIRIN EC 81 MG TABLET PO SCH (08:37)
[2019-05-29] MEDS: FLUTICASONE 50 MCG NASAL SPRAY 16 GM BOTTLE BOTH NARES SCH (08:38)
[2019-05-29] MEDS: PANTOPRAZOLE 40 MG TABLET PO SCH ×2 (08:38→23:53)
[2019-05-29] MEDS: POTASSIUM CHLORIDE 10 MEQ TABLET PO SCH (08:38)
[2019-05-29] MEDS: amLODIPine 2.5 MG TABLET PO SCH (08:38)
[2019-05-29] MEDS: predniSONE 20 MG TABLET PO SCH (08:38)
[2019-05-29] MEDS: MEMANTINE 10 MG TABLET PO SCH ×2 (08:38→23:53)
[2019-05-29] MEDS: guaiFENesin 200 MG/10 ML UDCUP PO SCH ×2 (08:39→23:54)
[2019-05-29] MEDS: THEOPHYLLINE ER (24 HR) 200 MG CAPSULE PO SCH (08:39)
[2019-05-29] MEDS ORDERED: POTASSIUM CHLORIDE 10 MEQ TABLET PO ONE (10:54)
[2019-05-30] MEDS: PIPERACILLIN/TAZOBACTAM 3,375 MG in SODIUM CHLORIDE 0.9% 100 ML IV SCH ×3 (01:20→17:56)
[2019-05-30] MEDS: DEXTROSE 5% KCL 20 MEQ 20 MEQ/1,000 ML BAG IV SCH ×3 (04:22→21:41)
[2019-05-30 05:15] LABS: Basophils % 0.2 % (0.0-0.8); Eosinophils # 0.9 10*3/uL (0.0-0.87); Eosinophils % 7.7 % (0.00-10.9); Hematocrit 37.4 VOL% (35.7-47.0); Hemoglobin 11.5 GM/DL (12.0-16.0); Immature Granulocytes % 1.7 %; Lymphocytes # 1.2 10*3/uL (1.4-4.0); Lymphocytes % 10.2 % (21.3-54.2); Mean Corpuscular HGB Conc 30.7 GM/DL (32-36); Mean Corpuscular Volume 104.5 FL (87-102); Mean Platelet Volume 12.1 FL (9.6-12.0); Monocytes % 6.4 % (1.7-12.7); Neutrophils % 73.8 % (38.7-73.9); Platelet Count 120 T/CUMM (130-400); Red Blood Count 3.58 MC/CUMM (3.8-5.5); White Blood Count 11.5 T/CUMM (4-12)
[2019-05-30 05:22] LABS: Calcium 6.4 MG/DL (8.5-10.1); Osmolality,Calculated 290.3 MOS/KG (273-304)
[2019-05-30] MEDS: VANCOMYCIN INJ 1,000 MG in SODIUM CHLORIDE 0.9% 250 ML IV SCH (05:27)
[2019-05-30] MEDS: ENOXAPARIN 40 MG/0.4 ML SYRINGE SUBCUT SCH (06:32)
[2019-05-30] MEDS: LEVOTHYROXINE 88 MCG TABLET PO SCH (06:33)
[2019-05-30] MEDS: POTASSIUM CHLORIDE RIDER 10 MEQ in PREMIX 1 EACH IV PRN ×4 (06:35→12:44)
[2019-05-30] MEDS: ASPIRIN EC 81 MG TABLET PO SCH (08:20)
[2019-05-30] MEDS: POTASSIUM CHLORIDE 10 MEQ TABLET PO SCH (08:20)
[2019-05-30] MEDS: FLUTICASONE 50 MCG NASAL SPRAY 16 GM BOTTLE BOTH NARES SCH (08:20)
[2019-05-30] MEDS: DOCUSATE SODIUM 100 MG CAPSULE PO SCH ×2 (08:20→23:36)
[2019-05-30] MEDS: DONEPEZIL 10 MG TABLET PO SCH (08:20)
[2019-05-30] MEDS: LACTOBACILLUS RHAMNOSUS GG CAPSULE PO SCH (08:20)
[2019-05-30] MEDS: DEXTROMETHORPHAN ER 6 MG/ML 90 ML/BOTTLE PO SCH ×2 (08:20→23:36)
[2019-05-30] MEDS: predniSONE 20 MG TABLET PO SCH (08:21)
[2019-05-30] MEDS: PANTOPRAZOLE 40 MG TABLET PO SCH ×2 (08:21→23:36)
[2019-05-30] MEDS: guaiFENesin 200 MG/10 ML UDCUP PO SCH ×2 (08:21→23:36)
[2019-05-30] MEDS: MEMANTINE 10 MG TABLET PO SCH ×2 (08:21→23:36)
[2019-05-30] MEDS: amLODIPine 2.5 MG TABLET PO SCH (08:21)
[2019-05-30] MEDS: THEOPHYLLINE ER (24 HR) 200 MG CAPSULE PO SCH (08:21)
[2019-05-30] MEDS ORDERED: MAGNESIUM SULF RIDER 2 GM in PREMIX 1 EACH IV ONE (10:48)
[2019-05-31] MEDS: PIPERACILLIN/TAZOBACTAM 3,375 MG in SODIUM CHLORIDE 0.9% 100 ML IV SCH ×2 (01:32→09:06)
[2019-05-31] MEDS: DEXTROSE 5% KCL 20 MEQ 20 MEQ/1,000 ML BAG IV SCH (01:43)
[2019-05-31] MEDS: VANCOMYCIN INJ 1,000 MG in SODIUM CHLORIDE 0.9% 250 ML IV SCH (05:24)
[2019-05-31] MEDS: ENOXAPARIN 40 MG/0.4 ML SYRINGE SUBCUT SCH (05:46)
[2019-05-31] MEDS: LEVOTHYROXINE 88 MCG TABLET PO SCH (05:46)
[2019-05-31 05:56] LABS: Osmolality,Calculated 306.9 MOS/KG (273-304)
[2019-05-31 05:58] LABS: Calcium 5.1 MG/DL (8.5-10.1)
[2019-05-31] MEDS: POTASSIUM CHLORIDE RIDER 10 MEQ in PREMIX 1 EACH IV PRN ×2 (06:38→07:46)
[2019-05-31] MEDS: DONEPEZIL 10 MG TABLET PO SCH (08:58)
[2019-05-31] MEDS: FLUTICASONE 50 MCG NASAL SPRAY 16 GM BOTTLE BOTH NARES SCH (08:59)
[2019-05-31] MEDS: POTASSIUM CHLORIDE 10 MEQ TABLET PO SCH (08:59)
[2019-05-31] MEDS: DOCUSATE SODIUM 100 MG CAPSULE PO SCH (08:59)
[2019-05-31] MEDS: MEMANTINE 10 MG TABLET PO SCH (08:59)
[2019-05-31] MEDS: amLODIPine 2.5 MG TABLET PO SCH (08:59)
[2019-05-31] MEDS: ASPIRIN EC 81 MG TABLET PO SCH (08:59)
[2019-05-31] MEDS: DEXTROMETHORPHAN ER 6 MG/ML 90 ML/BOTTLE PO SCH (08:59)
[2019-05-31] MEDS: LACTOBACILLUS RHAMNOSUS GG CAPSULE PO SCH (08:59)
[2019-05-31] MEDS: PANTOPRAZOLE 40 MG TABLET PO SCH (09:00)
[2019-05-31] MEDS: THEOPHYLLINE ER (24 HR) 200 MG CAPSULE PO SCH (09:00)
[2019-05-31] MEDS: guaiFENesin 200 MG/10 ML UDCUP PO SCH (09:00)
[2019-05-31] MEDS: predniSONE 20 MG TABLET PO SCH (09:00)
[2019-05-31] MEDS ORDERED: CALCIUM GLUCONATE 2,000 MG in SODIUM CHLORIDE 0.9% 100 ML IV ONE (10:02)
[2019-05-31] MEDS ORDERED: MAGNESIUM SULF RIDER 4 GM in PREMIX 1 EACH IV ONE (10:02)
[2019-05-31] MEDS ORDERED: POTASSIUM CHLORIDE 20 MEQ/15 ML UDCUP PO ONE (10:03)
[2019-05-31 11:58] VITALS: BP 128/67
== END 2019-05-31 14:30 | disposition hospice, home (50) | DRG 690 ==
LOC: EDUNIT# → EDBD → N.ED 17:13 → N.EDINP 20:23 → N.TELES 22:22
PROVIDERS: ADMIT Internal Medicine; ATTEND Internal Medicine